=== PATIENT | female | born 1970 | race Caucasian/White ===

== ENCOUNTER 2017-06-30 21:53 | Emergency (ER) | payer OTHER, SELFPAY ==
[2017-06-30 22:00] VITALS: BP 131/78; PULSE 72; RESP 20; TEMP 37.2; O2SAT 98; BMI 30.8
--- NOTE | 2017-06-30 22:25 | HMH.EDWNDL ---
ED Disposition Clinical Impression: Scalp laceration Qualifiers: Encounter type: initial encounter Qualified Code(s): S01.01XA - Laceration without foreign body of scalp, initial encounter Disposition: Home, Self-Care Condition on Discharge: Good Instructions: DI for Laceration Repair, DI for Closed Head Injury Additional Instructions: Additional instructions for SCALP LACERATION: Clean the wound daily with soap and water. You may shower and shampoo your hair. Avoid submerging the wound. No swimming.. Apply a thin film of antibiotic ointment such as neosporin, polysporin, or triple antibiotic daily after showering. Be careful when combing or brushing hair so that you so not snag the israel with a comb or brush. See your primary care physician or return to the [facility] in 7 days for suture removal. The [facility] is open 9 AM to 9 PM 7 days a week. Return if any signs of infection including increasing pain, pus drainage, swelling, redness, red streaks, or fever. Additional instructions for HEAD INJURY: Return immediately if severe headache, vomiting, problems with vision or speech, numbness or weakness of the extremities, or severe neck pain. Referrals: Lynne Green [Primary Care Provider] - - Critical Care Critical Care Time: No Attestation: On , the high probability of a clinically significant, sudden or life threatening deterioration of the following system(s) required my full and direct attention, intervention and personal management. The time I documented below is in addition to time spent performing reported procedures but includes the following listed in this critical care notation. Medical Decision Making Vital Signs: 06/30/17 22:00 Temperature 98.9 F Temperature Source Oral Pulse Rate [Right Brachial] 72 Respiratory Rate 20 Blood Pressure [Right Arm] 131/78 Blood Pressure Mean [Right Arm] 95 Blood Pressure Source [Right Arm] Automatic Cuff Blood Pressure Position [Right Arm] Sitting 02 Sat by Pulse Oximetry 98 Oxygen Delivery Method Room Air Orders (Tests/Meds): ED MEDICATIONS Discontinued Medications Generic Name Dose Route Start Last Admin Trade Name Freq PRN Reason Stop Dose Admin Lidocaine/Epinephrine 10 ml 06/30/17 22:29 Lidocaine 2% W/Epi 1:100,000 20ml Vial IJ 06/30/17 22:30 ONCE ONE - Dannie Inquiry Pt receiving controlled substance: No Wound/Laceration HPI - General Chief Complaint: Wound/Laceration Stated Complaint: ao [id number] lac to head Mode of Arrival: Family Vehicle Limitations: No Limitations Description of Symptoms (Recalled from ER Triage Doc. by RN): LACERATION TO HEAD. HIT HEAD WITH JONES OF HER CAR. NO LOSS OF CONSCIOUSNESS - History of Present Illness HPI narrative: The patient cut her scalp when she hit it with a car latch. No loss of consciousness. No neck pain. No vomiting. Tetanus immunization up-to-date. She is not on any blood thinners. - Related Data Allergies Allergy/AdvReac Type Severity Reaction Status Date / Time Sulfa (Sulfonamide Allergy Intermediate I-HIVES Verified 06/30/17 22:09 Antibiotics) [SULFA (SULFONAMIDE ANTIBIOTICS)] EGGS (FOOD) Allergy Severe NA-NAUSEA Uncoded 05/30/17 14:11 [facility] History I have reviewed the patient's past medical history: Yes Medical History: Denies:: Cancer, Diabetes Mellitus Type 1, Diabetes Mellitus Type 2, MRSA Amputation: No Fractures: No - *Social History Educational Level: Completed College Smoking Status: Former smoker Smoking End Date: 17 YEARS AGO Alcohol Intake: never - Psychiatric History Expresses thoughts of harming self/others: None Suicide Plan Description: No Plan ROS Obtained: Yes Systems reviewed as appropriate & no additional complaints - Eyes Eyes: Denies change in vision - Musculoskeletal Musculoskeletal: Denies neck pain - Neurologic Neurologic: Denies headache(s), Denies other visual
[2017-06-30 23:05] VITALS: BP 154/93; PULSE 68; RESP 14; O2SAT 99
== END 2017-06-30 23:12 | disposition home or self-care (01) ==
LOC: ER 22:53
PROVIDERS: Emergency Provider Emergency Medicine; PCP Family Medicine
DX: S01.01XA Laceration without foreign body of scalp, initial encounter (principal); W22.8XXA Striking against or struck by other objects, initial encounter; Y93.89 Activity, other specified; Y92.9 Unspecified place or not applicable; Z88.2 Allergy status to sulfonamides; Z87.891 Personal history of nicotine dependence
CPT/HCPCS: 12001; 99281; 99282

== ENCOUNTER → 2017-09-25 07:57 | Outpatient (CLI) | payer OTHER, SELFPAY ==
--- NOTE | 2017-09-25 08:03 | US_ITS ---
HISTORY: ITS.REASON: RUQ PAIN, CONSTIPATION, BLOATING ORDERING PHYSICIAN: Estiven Castellanos PATIENT AGE: 47 years COMPARISON: FINDINGS: PANCREAS: Unremarkable. No obvious mass or abnormal fluid collection. No ductal dilatation LIVER: No focal liver lesions demonstrated. Homogeneous echogenicity. No intrahepatic biliary ductal dilatation evident RIGHT KIDNEY: Unremarkable. Normal size and echogenicity. No hydronephrosis GALLBLADDER: No gallstones, gallbladder wall thickening, pericholecystic fluid, or biliary dilatation. IMPRESSION: Negative gallbladder/right upper quadrant ultrasound
== END ==
PROVIDERS: PCP Family Medicine; Visit Provider Student in an Organized Health Care Education/Training Program
DX: K59.00 Constipation, unspecified (principal); R14.0 Abdominal distension (gaseous); R10.13 Epigastric pain; R10.11 Right upper quadrant pain
CPT/HCPCS: 76705

== ENCOUNTER → 2018-05-21 09:41 | Outpatient (CLI) | payer OTHER, SELFPAY ==
--- NOTE | 2018-05-21 09:43 | XR_ITS ---
XR foot wt bearing RT 3V HISTORY: Pain and swelling ITS.REASON: pain ORDERING PHYSICIAN: Faye Wallace DPM PATIENT AGE: 48 years COMPARISON: 04/02/2016 FINDINGS: No fracture or dislocation. No lytic or blastic change. There is normal mineralization.. The joint spaces are well-preserved. No significant degenerative/arthritic changes. No erosive changes evident. IMPRESSION: Negative, no acute finding
--- NOTE | 2018-05-21 09:43 | XR_ITS ---
XR foot wt bearing LT 3V HISTORY: Pain and swelling ITS.REASON: pain ORDERING PHYSICIAN: Faye Wallace DPM PATIENT AGE: 48 years COMPARISON: None FINDINGS: No fracture or dislocation. No lytic or blastic change. There is normal mineralization.. The joint spaces are well-preserved. No significant degenerative/arthritic changes. No erosive changes evident. There is an 8 mm calcaneal spur which is nonspecific IMPRESSION: Small calcaneal spur otherwise negative left foot
--- NOTE | 2018-05-21 09:43 | XR_ITS ---
XR ankle wt bearing RT min 3V HISTORY: Pain and swelling, multiple sprains ITS.REASON: pain ORDERING PHYSICIAN: Faye Wallace DPM PATIENT AGE: 48 years Comparison: 04/02/2016 FINDINGS: No fracture or dislocation. No lytic or blastic change. There is normal mineralization.. The joint spaces are well-preserved. No significant degenerative/arthritic changes. No erosive changes evident. IMPRESSION: Negative ankle, no acute finding
--- NOTE | 2018-05-21 09:43 | XR_ITS ---
XR ankle wt bearing LT min 3V HISTORY: Pain and swelling, multiple sprains ITS.REASON: pain ORDERING PHYSICIAN: Faye Wallace DPM PATIENT AGE: 48 years Comparison: None FINDINGS: No fracture or dislocation. No lytic or blastic change. There is normal mineralization.. There is mild spurring at the tip of the medial malleolus and the medial margin of the talus at this area. The talar dome has an unremarkable appearance. IMPRESSION: No acute finding. Minimal spurring at the distal aspect of the tibiotalar joint at the medial malleolus region
== END ==
PROVIDERS: PCP Family Medicine; Visit Provider Podiatrist
DX: M79.672 Pain in left foot (principal); M79.671 Pain in right foot; M25.572 Pain in left ankle and joints of left foot; M25.571 Pain in right ankle and joints of right foot
CPT/HCPCS: 73610; 73630

== ENCOUNTER → 2018-05-28 15:09 | Outpatient (CLI) | payer OTHER, SELFPAY ==
--- NOTE | 2018-05-28 15:13 | MR_ITS ---
MR ankle RT wo con Ordering Physician: Faye Wallace DPM Patient Age: 48 years: Female HISTORY: ITS.REASON: ankle pain 3 ankle sprains since October 30, 2015. Still has pain unable to exercise. Pain is anterior and all around ankle. Swelling at times. TECHNIQUE multiple ankle sprains with: Multiplanar multisequence MRI 1.5 [facility] MR COMPARISON :Plain films of the right ankle and foot from 04/02/2016 & 05/21/2018 FINDINGS No current swelling is seen overlying the lateral malleolus/lateral ankle. The anterior talofibular ligament is visualized.. Noted to be slightly stauffer signal character,] with portions slightly thickened. Suspect previous sprain . I believe the calcaneofibular ligament is also visualized and remains although also perhaps slightly greater in character which may reflect prior injury. The anterior tibiofibular ligament intact. The posterior tibial fibular and talofibular ligaments intact. The tibia-fibular relationship appears normal-distally as well as throughout interosseous region.. The peroneus brevis and longus tendons appear intact. On close review I noted Upper normal signal within this somewhat small peroneus brevis tendon. This in part reflect magic angle artifact, particularly on the sagittal image set, doubt but difficult to exclude minor prior interstitial injury as it passes lateral to the calcaneus. The medial malleolus is intact. No swelling Posterior tibial tendon intact, as well as flexor digitorum longus.... I would note a small septated fluid signal focus just lateral to the talocalcaneal joint, overlying the overlying FHL. Coronal image 20, axial image 15.. Actually on further review this seems to be associated with some inflow and outflow veins and thus is likely merely slightly varicose vein with, prominent valve.. Less likely small synovial cyst . ankle mortise intact with normal relationships. Cartilage seems well maintained with only some slight variable signal at the cartilage overlying the medial corner of talus. There is a small dot of signal at the medial corner of talus, unimpressive but could reflect a extremely tiny minor osteochondral irregularity here, coronal image 18, axial slice 9. The tibial fibular relationships appear satisfactory. Moving distally there are some subtle signal changes at the dorsal aspect distal cuboid, axial image 18. May reflect some minor early degenerative changes at distal cuboid at its articulation with of fifth MT base. Also small subchondral signal focus at the proximal aspect of the lateral cuneiform, axial image 15 sagittal 21 which may also reflect some scant early degenerative change. Unimpressive but noted. Calcaneus intact.Plantar Aponeurosis unremarkable on right IMPRESSION 1. Anterior talofibular ligament is identified. As is the calcaneofibular ligament ... Both appears slightly stauffer character, & perhaps very slightly thickened ATFL. These features may reflect previous sprain history.. 2 Ankle mortise intact, normal relationships, with with no prominent findings. ... Only question slight inhomogeneous chondral signal overlying the medial corner of talus, and note tiny dot of signal within the bone at medial corner of talus of questionable significance.. ... Upper normal signal peroneus brevis tendon. More Likely magic angle artifact . 3.. Other minor observations as in text. .... Suggestion scant early degenerative changes: at distal cuboid-fifth MT articulation; question a at proximal margin lateral cuneiform ... Upper normal signal within the slender peroneus brevis tendon. More Likely magic angle artifact
== END ==
PROVIDERS: Visit Provider Podiatrist
DX: M25.371 Other instability, right ankle (principal); S93.401A Sprain of unspecified ligament of right ankle, initial encounter
CPT/HCPCS: 73721

== ENCOUNTER → 2018-10-04 13:58 | Outpatient (CLI) | payer OTHER, SELFPAY ==
--- NOTE | 2018-10-04 14:02 | XR_ITS ---
XR shoulder LT min 2V HISTORY: ITS.REASON: ap, scapular-y ORDERING PHYSICIAN: Magalie Saavedra MD PATIENT AGE: 48 years Comparison: None FINDINGS: AP internal rotation and scapular Y views are obtained. No fracture or dislocation. The joint space is well preserved. No lytic or blastic change. No subacromial stenosis. IMPRESSION: Negative left shoulder
== END ==
PROVIDERS: PCP Family Medicine; Visit Provider Orthopaedic Surgery
DX: M25.512 Pain in left shoulder (principal)
CPT/HCPCS: 73030

== ENCOUNTER → 2019-03-25 09:27 | Outpatient (CLI) | payer OTHER, SELFPAY ==
--- NOTE | 2019-03-25 09:31 | XR_ITS ---
PROCEDURE: XR SHOULDER LT MIN 2V CLINICAL INDICATION: Shoulder pain Chronic left shoulder pain COMPARISON: No exams were available for comparison FINDINGS: No fracture or dislocation. There are mild osteoarthritic changes of the glenohumeral joint. Unremarkable acromioclavicular joint. IMPRESSION: Mild osteoarthritic change glenohumeral joint otherwise negative Dictated by: Derw Daniels MD 03/25/2019 11:42 Electronically signed by Drew Daniels MD in [place] 03/25/2019 11:42
== END ==
PROVIDERS: PCP Internal Medicine; Visit Provider Orthopaedic Surgery
DX: M19.012 Primary osteoarthritis, left shoulder (principal)
CPT/HCPCS: 73030

== ENCOUNTER → 2019-05-14 15:58 | Outpatient (CLI) | payer OTHER, SELFPAY ==
[2019-05-14 16:25] LABS: Basophils % 0.4 % (0.1-2.0); Eosinophils # 0.2 K/mm3 (0.0-0.4); Eosinophils % 2.8 % (0.1-12.0); Hematocrit 41.5 % (37.0-47.0); Lymphocytes # 1.9 K/mm3 (0.7-4.5); Lymphocytes % 31.8 % (10-50); Mean Corpuscular HGB Conc 33.7 g/dL (31.8-35.4); Mean Corpuscular Hemoglobin 31.6 pg (27.0-31.2); Mean Corpuscular Volume 93.9 fl (81-99); Mean Platelet Volume 7.3 fl (7.4-10.4); Monocytes # 0.2 K/mm3 (0.1-1.0); Monocytes % 3.7 % (1.7-9.3); Neutrophils # 3.7 K/mm3 (1.8-7.8); Neutrophils % 61.3 % (37.0-80.0); Platelet Count 273 K/mm3 (142-424); Red Blood Count 4.42 M/mm3 (4.20-5.40); Red Cell Distribution Width 12.7 % (11.5-17.5); White Blood Count 6.1 K/mm3 (4.8-10.8)
[2019-05-14 16:33] LABS: INR 0.97 (0.9-1.1); Prothrombin Time 10.1 seconds (9.4-11.8)
[2019-05-14 17:27] LABS: Alanine Aminotransferase 33 U/L (12-78); Albumin/Globulin Ratio 1.2 (1.1-1.8); Alkaline Phosphatase 115 U/L (46-116); Anion Gap 13.9 mEq/L (5-15); Aspartate Amino Transferase 20 U/L (15-37); Bilirubin,Total 0.3 mg/dL (0.2-1.0); Blood Urea Nitrogen 15 mg/dL (7-18); Carbon Dioxide 28 mmol/L (21.0-32.0); Chloride 104 mmol/L (98-107); Creatinine,Serum 0.84 mg/dL (0.55-1.02); Estimated Glomerular Filt Rate 72 ml/min (>60); GFR (African American) 87 ML/MIN (>60); Globulin 3.3 gm/dl (1.3-3.2); Glucose 93 mg/dL (74-106); Potassium 3.9 mmoL/L (3.5-5.1); Sodium 142 mmol/L (136-145); Total Protein,Serum 7.3 gm/dL (6.4-8.2)
== END ==
PROVIDERS: Visit Provider Orthopaedic Surgery
DX: Z01.818 Encounter for other preprocedural examination (principal); M25.512 Pain in left shoulder
CPT/HCPCS: 36415; 80053; 85025; 85610

== ENCOUNTER → 2019-08-12 08:34 | Outpatient (CLI) | payer OTHER, SELFPAY ==
--- NOTE | 2019-08-12 08:48 | XR_ITS ---
PROCEDURE: XR SHOULDER LT MIN 2V CLINICAL INDICATION: ap (Grashty) , scapular y, and axillary Follow-up surgery, pain COMPARISON: XR SHOULDER LT MIN 2V from 03/25/2019 FINDINGS: No acute fracture or dislocation. Minimal osteoarthritic change glenohumeral joint. There is a transverse lucency in the proximal shaft of the humerus which may be due to bicipital tendon transfer. Please correlate with surgical procedure. IMPRESSION: Mild osteoarthritic change. Lucency of the proximal humerus which may be postsurgical. Dictated by: Drew Daniels MD 08/12/2019 11:43 Electronically signed by Drew Daniels MD in [place] 08/12/2019 11:43
== END ==
PROVIDERS: PCP Family Medicine; Visit Provider Orthopaedic Surgery
DX: S43.431A Superior glenoid labrum lesion of right shoulder, initial encounter (principal); S01.01XA Laceration without foreign body of scalp, initial encounter
CPT/HCPCS: 73030